=== PATIENT | male | born 1950 | race Caucasian/White ===

== ENCOUNTER 2023-03-24 07:43 | Outpatient (CLI) | payer MEDICARE, OTHER ==
[2023-03-24] MEDS ORDERED: Magnevist 469MG/ML 20 ML VIAL ONE (10:09)
== END 2023-03-24 07:44 | disposition home or self-care (01) ==
LOC: CSHMRI 07:43
PROVIDERS: ATTEND Urology
DX: R97.20 Elevated prostate specific antigen [PSA] (principal)
CPT/HCPCS: 72197; 82565; A9579